=== PATIENT | male | born 1955 ===

== ENCOUNTER 2017-03-11 12:49 | Emergency (ER) | payer MEDICAID ==
[2017-03-11 12:53] VITALS: BMI 33.3
[2017-03-11 14:19] LABS: ADD MANUAL DIFF? NO
[2017-03-11 14:21] LABS: BASO # 0.01 K/mm3 (0.0-2.0); BASO % 0.2 % (0.0-3.0); EOS # 0.1 (0.0-0.7); EOS % 0.9 % (1.5-5.0); GRAN # 4.23 (1.4-6.5); GRAN % 71.9 % (50.0-68.0); HEMATOCRIT 43.6 % (42.0-52.0); LYMPH % 16.9 % (22.0-35.0); MEAN CELL VOLUME 87.2 fL (80.0-105.0); MEAN CORPUSCULAR HEMOGLOBIN 29.8 pg (25.0-35.0); MEAN CORPUSCULAR HGB CONC 34.2 g/dl (31.0-37.0); MEAN PLATELET VOLUME 9.9 fl (7.0-11.0); MONO # 0.6 (0.1-0.6); MONO % 10.1 % (1.0-6.0); PLATELET COUNT 222 10^3/uL (120.0-450.0); RED CELL DISTRIBUTION WIDTH 14.4 % (11.5-14.5); WHITE BLOOD COUNT 5.9 10^3/ul (4.5-11.0)
--- NOTE | 2017-03-11 14:24 | ED PDOC ---
Arrival/HPI - General Chief Complaint: Weakness/Neurological Deficit Time Seen by Provider: 03/11/17 13:00 Historian: Patient - History of Present Illness Narrative History of Present Illness (Text): 03/11/17 13:45 A 61 year old male, whose PMHx includes hyperlipidemia, hypertension, and atrial fibrillation, who presents to the emergency department complaining of left facial numbness and drooling from that side of face that started yesterday at 9 am. Patient states his nose felt numb as well. So he decided to come to the emergency department for evaluation. Patient denies any neurological issue below the neck, headache, dizziness, fever, nausea, vomiting, diarrhea, or any other complaints at this time. PMD: Dr. Mcgovern 03/11/17 16:57 Time/Duration: 24 hours Symptom Onset: Sudden Symptom Course: Worsening Quality: Other Activities at Onset: Rest Context: Home Past Medical History - Provider Review Nursing Documentation Reviewed: Yes - Past History Past History: No Previous - Infectious Disease Hx of Infectious Diseases: None - Tetanus Immunization Tetanus Immunization: Unknown - Cardiac Hx Cardiac Disorders: Yes Hx Cardiac Arrhythmia: Yes Hx Hypertension: Yes Hx Pacemaker: No - Pulmonary Hx Respiratory Disorders: No - Neurological Hx Neurological Disorder: No Hx Paralysis: No - HEENT Hx HEENT Disorder: No - Renal Hx Renal Disorder: Yes Hx Kidney Stones: Yes - Endocrine/Metabolic Hx Endocrine Disorders: No - Hematological/Oncological Hx Blood Transfusions: No - Integumentary Hx Dermatological Disorder: No - Musculoskeletal/Rheumatological Hx Musculoskeletal Disorders: Yes - Gastrointestinal Hx Gastrointestinal Disorders: Yes (APPENDECTOMY ,TONSILLECTOMY) Hx Gastroesophageal Reflux: Yes - Genitourinary/Gynecological Hx Genitourinary Disorders: Yes Hx Hematuria: Yes Hx Prostate Problems: No (pt denies) - Psychiatric Hx Psychophysiologic Disorder: No Hx Emotional Abuse: No Hx Physical Abuse: No Hx Substance Use: No (quit 1997 percy, pot) - Past Surgical History Past Surgical History: No Previous - Surgical History Hx Appendectomy: Yes Hx Tonsillectomy: Yes - Anesthesia Hx Anesthesia Reactions: No Hx Malignant Hyperthermia: No - Suicidal Assessment Feels Threatened In Home Enviroment: No Family/Social History - Physician Review Nursing Documentation Reviewed: Yes Family/Social History: Unknown Family HX Smoking Status: Light Smoker < 10 Cigarettes Daily Hx Alcohol Use: No (quit 1997) Hx Substance Use: No (quit 1997 coke, pot) Hx Substance Use Treatment: No Allergies/Home Meds Allergies/Adverse Reactions: Allergies No Known Allergies Allergy (Verified 03/11/17 12:58) Home Medications: Home Meds Medication Instructions Recorded Confirmed Losartan [Cozaar] 25 mg PO DAILY 12/04/12 03/11/17 hydroCHLOROthiazide [Microzide] 12.5 mg PO DAILY 09/25/13 03/11/17 Metoprolol Tartrate [Lopressor] 100 mg PO DAILY 04/23/16 03/11/17 Simvastatin [Zocor] 20 mg PO DAILY 04/23/16 03/11/17 Warfarin [Coumadin] 2.5 mg PO DAILY 04/23/16 03/11/17 Review of Systems - Review of Systems Constitutional: absent: Fevers ENT: Other (drooling from left side) Gastrointestinal: absent: Diarrhea, Nausea, Vomiting Neurological: Other (numbness to the face). absent: Headache, Dizziness, Focal Weakness Physical Exam Vital Signs Reviewed: Yes Vital Signs Temp Pulse Resp BP Pulse Ox 03/11/17 12:53 98.1 F 95 H 16 143/74 98 Temperature: Afebrile Blood Pressure: Normal Pulse: Regular Respiratory Rate: Normal Appearance: Positive for: Well-Appearing, Non-Toxic, Comfortable Pain Distress: None Mental Status: Positive for: Alert and Oriented X 3 Finger Stick Blood Glucose: 114 - Systems Exam Head: Present: Atraumatic, Normocephalic Pupils: Present: PERRL Extroacular Muscles: Present: EOMI Conjunctiva: Present: Normal Mouth: Present: Moist Mucous Membranes Neck: Present: Normal Range of Motion Respiratory/Chest: Present: Clear to Auscultation, Good Air Exchange. No: Respiratory Distress, Accessory Muscle Use Cardiovascular: Present: Regular Rate and Rhythm, Normal S1, S2. No: Murmurs Abdomen: Present: Normal Bowel Sounds. No: Tenderness, Distention, Peritoneal Signs Back: Present: Normal Inspection Upper Extremity: Present: Normal Inspection. No: Cyanosis, Edema Lower Extremity: Present: Normal Inspection. No: Edema Neurological: Present: GCS=15, Speech Normal, Motor Func Grossly Intact, Normal Cerebellar Funct, Gait Normal, Memory Normal, Other (left sided facial droop with asymmetrical eyebrows when furrowed. ). No: CN II-XII Intact Skin: Present: Warm, Dry, Normal Color. No: Rashes Psychiatric: Present: Alert, Oriented x 3, Normal Insight, Normal Concentration Medical Decision Making ED Course and Treatment: 03/11/17 13:44 Impression: A 61 year old male with left sided facial droop. Differential Diagnosis include but are not limited to: arellano's palsy Plan: -- Head CT -- Labs -- Urinalysis -- Reassess and disposition Prior Visits: Notes and results from previous visits were reviewed. The patient last presented to the emergency department on 08/21/15 for evaluation of intermittent left upper chest pain. Progress Notes: EKG: Ordered, reviewed, and independently interpreted the EKG. Rate : 91 BPM Rhythm : Atrial fibrillation Interpretation : Left axis deviation 03/11/17 15:[address]: Creator : Selena Barajas MD COMPARISON: None available. FINDINGS: HEMORRHAGE: No intracranial hemorrhage. BRAIN: There is cystic encephalomalacia in the right temporal lobe with volume loss and mild dilatation of the trigone of right lateral ventricle. There are mild chronic microangiopathic changes. There is no mass, mass effect or abnormal extra-axial fluid collection. There are coarse atherosclerotic calcifications in the cavernous carotid arteries. VENTRICLES: There is mild age-related global parenchymal volume loss and proportionate enlargement of the ventricles and cortical sulci. CALVARIUM: The skull base and calvarium are normal. PARANASAL SINUSES: Predominantly clear. MASTOID AIR CELLS: Predominantly clear. OTHER FINDINGS: None. IMPRESSION: No acute intracranial abnormality. 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 Mild chronic microangiopathic changes and age-related global parenchymal volume loss. 03/11/17 15:44 On re-evaluation, the patient is in no acute distress. I have discussed the results and plan with the patient, who expresses understanding. Patient in agreement with plan to discharged home with prescription for Artificial Tears, Valtrex and Prednisone. Patient was instructed to take a extra dose of Warfarin tonight as INR was a little low. Patient is stable for discharge. Patient was instructed to follow up with neurologist (Dr. Portillo) and PMD within 2 days or return if symptoms worsen or new concerning symptoms arise. pt referred to [facility] for follow up. 03/11/17 17:01 - Lab Interpretations Lab Results: 03/11/17 13:40 03/11/17 13:40 Lab Results 03/11/17 13:40: WBC 5.9, RBC 5.00, Hgb 14.9, Hct 43.6, MCV 87.2, MCH 29.8, MCHC 34.2, RDW 14.4, Plt Count 222, MPV 9.9, Gran % 71.9 H, Lymph % (Auto) 16.9 L, [place] % (Auto) 10.1 H, Eos % (Auto) 0.9 L, Baso % (Auto) 0.2, Gran # 4.23, Lymph # 1.0 L, [place] # 0.6, Eos # 0.1, Baso # 0.01, PT 15.9 H, INR 1.47 H, APTT 32.0 H , Sodium 139, Potassium 4.1, Chloride 101, Carbon Dioxide 26, Anion Gap 16, BUN 26 H, Creatinine 1.1, Est GFR ( Amer) > 60, Est GFR (Non-Af Amer) > 60, Random Glucose 90, Calcium 9.0, Total Bilirubin 0.6, AST 31, ALT 33, Alkaline Phosphatase 58, Total Protein 8.6 H, Albumin 4.6, Globulin 4.0, Albumin/ Globulin Ratio 1.2 I have reviewed the lab results: Yes - RAD Interpretation Radiology Orders: 03/11/17 13:53 HEAD W/O CONTRAST [CT] Stat NIHSS Scale ([place]) Time Performed: 13:45 - How Severe is the Stoke Baseline Level of Consciousness: 0=Alert LOC to Questions: 0=Both comments correct LOC to commands: 0=Obeys both correctly Best Gaze: 0=Normal Visual: 0=No visual loss Facial: 1=Minor asymmetry Motor Arm - Left: 0=No drift Motor Arm - Right: 0=No drift Motor Leg - Left: 0=No drift Motor Leg - Right: 0=No drift Limb Ataxia: 0=Absent Sensory: 0=Normal Best Language: 0=No aphasia Dysarthia: 0=Normal articulation Extinction & Inattention (Neglect): 0=Normal, no object Score: 1 Risk Level: Minor Stroke Risk rTPA Inclusion/Exclusion - Refusal of Treatment Patient Refused Treatment: No - Inclusion Criteria for Altepase Patient is 18 years or Older: Yes The Clinical Diagnosis of Ischemic Stroke That is Causing a Potentially Disabling Neurological Deficit: No Time of Onset is Well Established to be Less Than 270 Minute Before Treatment Would Begin: No Risk/Benefit Discussed With Patient/Family Member Present: No - Exclusion Criteria for Altepase Uncontrolled Hypertension at Time of Treatment (Systolic BP above 185 or Diastolic BP above 110 mmHg): No Active Internal Bleeding: No Known Bleeding Diathesis Including but Not Limited to: Platelets Below 100,000/ mm,PTT Above 40 sec After Heparin Use, Current Use of Oral Anitcoagulant With INR Greater Than 1.7 or PT Greater Than 15 secs: No Evidence of an Intracranial Hemorrhage: No Evidence of Major Acute Infarct With Signs Greater Than 1/3 MCA Territory: No Suspicion of Subarachnoid Hemorrhage on Pretreatment Evaluation Even if CT Head Negative For Hemorrhage: No - Scribe Statement The provider has reviewed the documentation as recorded by the Steveibe Marcos Stanford Provider Steveibe Attestation: All medical record entries made by the Scribe were at my direction and personally dictated by me. I have reviewed the chart and agree that the record accurately reflects my personal performance of the history, physical exam, medical decision making, and the department course for this patient. I have also personally directed, reviewed, and agree with the discharge instructions and disposition. Disposition/Present on Arrival - Present on Arrival Any Indicators Present on Arrival: No History of DVT/PE: No History of Uncontrolled Diabetes: No Urinary Catheter: No History of Decub. Ulcer: No History Surgical Site Infection Following: None - Disposition Have Diagnosis and Disposition been Completed?: Yes Diagnosis: Arellano's palsy Disposition: HOME/ ROUTINE Disposition Time: 15:00 Patient Plan: Discharge Patient Problems: Current Active Problems Problem Status Diagnosed Arellano's palsy Acute Condition: GOOD Discharge Instructions (ExitCare): Arellano Palsy (ED) Additional Instructions: follow up with your primary doctor as well as neurologist in 1-2 days. return to the ED with any worsening or concerning symptoms. Prescriptions: Polyethylene Glycol/Polyvinyl [Artificial Tears] 1 drop OS BID PRN #1 bottle PRN Reason: Dry Eyes valACYclovir [Valtrex] 1 gm PO TID #21 tab predniSONE [Prednisone] 60 mg PO DAILY #30 tab Referrals: [facility] [Outside] - Follow up with primary Jean Carlos Heath MD [Staff Provider] - Follow up with primary Amanuel Mcgovern DO [Primary Care Provider] - Follow up with primary
[2017-03-11 14:30] LABS: ALB/GLOB RATIO 1.2 (1.1-1.8); ALKALINE PHOSPHATASE 58 U/L (38-133); ALT/SGPT 33 U/L (7-56); AST/SGOT 31 U/L (15-59); BILIRUBIN,TOTAL 0.6 mg/dL (0.2-1.3); BLOOD UREA NITROGEN 26 mg/dL (7-21); CARBON DIOXIDE 26 mmol/L (21-33); CHLORIDE 101 mmol/L (98-107); GFR AFRICAN-AMERICAN > 60; GLUCOSE,RANDOM 90 mg/dL (70-110); POTASSIUM 4.1 mmol/L (3.6-5.0); SODIUM 139 mmol/L (132-148); TOTAL PROTEIN 8.6 g/dL (5.8-8.3)
[2017-03-11 14:35] LABS: INR 1.47 (0.93-1.08)
--- NOTE | 2017-03-11 14:55 | CT ---
PROCEDURE: CT HEAD WITHOUT CONTRAST. HISTORY: Arellano's palsy COMPARISON: None available. TECHNIQUE: Axial computed tomography images were obtained through the head/brain without intravenous contrast. Radiation dose: Total exam DLP = 757.28 mGy-cm. This CT exam was performed using one or more of the following dose reduction techniques: Automated exposure control, adjustment of the mA and/or kV according to patient size, and/or use of iterative reconstruction technique. FINDINGS: HEMORRHAGE: No intracranial hemorrhage. BRAIN: There is cystic encephalomalacia in the right temporal lobe with volume loss and mild dilatation of the trigone of right lateral ventricle. There are mild chronic microangiopathic changes. There is no mass, mass effect or abnormal extra-axial fluid collection. There are coarse atherosclerotic calcifications in the cavernous carotid arteries. VENTRICLES: There is mild age-related global parenchymal volume loss and proportionate enlargement of the ventricles and cortical sulci. CALVARIUM: The skull base and calvarium are normal. PARANASAL SINUSES: Predominantly clear. MASTOID AIR CELLS: Predominantly clear. OTHER FINDINGS: None. IMPRESSION: No acute intracranial abnormality. 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 Mild chronic microangiopathic changes and age-related global parenchymal volume loss.
[2017-03-11 17:09] VITALS: BP 131/85; PULSE 78; RESP 18; TEMP 98; O2SAT 97
--- NOTE | 2017-03-12 18:20 | CARD ---
APPROVED REPORT EKG Measurement Heart [id number] <Conclusion> Atrial fibrillation Left axis deviation Abnormal ECG
== END 2017-03-11 17:34 | disposition home or self-care (01) ==
LOC: ED 12:49
DX: G51.0 Bell's palsy (principal); I10 Essential (primary) hypertension; E78.5 Hyperlipidemia, unspecified; K21.9 Gastro-esophageal reflux disease without esophagitis; Z72.0 Tobacco use

== ENCOUNTER 2017-11-01 13:08 | Emergency (ER) | payer MEDICAID ==
[2017-11-01 13:30] VITALS: PULSE 96; TEMP 97.7; BMI 33.6
--- NOTE | 2017-11-01 13:35 | ED PDOC ---
Arrival/HPI - General Time Seen by Provider: 11/01/17 13:21 Historian: Patient - History of Present Illness Narrative History of Present Illness (Text): 11/01/17 13: Chris Douglas is a 62 year old male, whose past medical history includes CHF, hypertension, and afib (on Coumadin), who presents to the emergency department complaining of severe cough that has become worse since last night. Patient states he also has sputum and mild shortness of breath. No other complaints were made. PMD: Dr. Robert Paz Time/Duration: 24 hours Symptom Onset: Gradual Symptom Course: Worsening Past Medical History - Provider Review Nursing Documentation Reviewed: Yes - Past History Past History: No Previous - Infectious Disease Hx of Infectious Diseases: None - Tetanus Immunization Tetanus Immunization: Unknown - Cardiac Hx Atrial Fibrillation: Yes Hx Cardiac Arrhythmia: Yes Hx Congestive Heart Failure: Yes Hx Hypertension: Yes Hx Peripheral Edema: Yes (IN THE PAST) - Pulmonary Other/Comment: pt stated " I smoke 2 or 3 cigs a day" - Neurological Hx Neurological Disorder: No - HEENT Hx HEENT Disorder: No - Renal Hx Renal Disorder: Yes Hx Kidney Stones: Yes - Endocrine/Metabolic Hx Endocrine Disorders: No - Hematological/Oncological Hx Blood Transfusions: No - Integumentary Hx Dermatological Disorder: No - Musculoskeletal/Rheumatological Hx Arthritis: Yes (hands) - Gastrointestinal Hx Gastrointestinal Disorders: Yes Hx Gastroesophageal Reflux: Yes - Genitourinary/Gynecological Hx Genitourinary Disorders: Yes Hx Hematuria: Yes - Psychiatric Hx Anxiety: Yes Hx Substance Use: Yes (quit 1997 catie greer) - Past Surgical History Past Surgical History: No Previous - Surgical History Hx Appendectomy: Yes Hx Tonsillectomy: Yes - Anesthesia Hx Anesthesia: Yes Hx Anesthesia Reactions: No Hx Malignant Hyperthermia: No - Suicidal Assessment Feels Threatened In Home Enviroment: No Family/Social History - Physician Review Nursing Documentation Reviewed: Yes Family/Social History: Unknown Family HX Smoking Status: Light Smoker < 10 Cigarettes Daily Hx Alcohol Use: Yes (quit 1997) Hx Substance Use: Yes (quit 1997 catie greer) Hx Substance Use Treatment: No Allergies/Home Meds Allergies/Adverse Reactions: Allergies No Known Allergies Allergy (Verified 10/27/17 16:34) Home Medications: Home Meds Medication Instructions Recorded Confirmed Losartan [Cozaar] 25 mg PO DAILY 12/04/12 11/01/17 Metoprolol Tartrate [Lopressor] 100 mg PO DAILY 04/23/16 11/01/17 Simvastatin [Zocor] 40 mg PO DAILY 04/23/16 11/01/17 Warfarin [Coumadin] 2.5 mg PO DAILY 09/06/17 11/01/17 Hydrochlorothiazide [Microzide] 12.5 mg PO DAILY 10/27/17 11/01/17 Review of Systems - Review of Systems Constitutional: absent: Fevers Eyes: absent: Vision Changes Respiratory: SOB, Cough, Sputum Cardiovascular: absent: Chest Pain Gastrointestinal: absent: Abdominal Pain Genitourinary Male: absent: Dysuria Musculoskeletal: absent: Back Pain Neurological: absent: Headache Endocrine: absent: Diaphoresis Hemo/Lymphatic: absent: Easy Bleeding Physical Exam Vital Signs Reviewed: Yes Vital Signs Temp Pulse Resp BP Pulse Ox 11/01/17 15:14 16 139/90 98 11/01/17 13:29 97.7 F 96 H 18 130/94 H 97 Temperature: Afebrile Blood Pressure: Hypertensive Pulse: Tachycardic Respiratory Rate: Normal Appearance: Positive for: Well-Appearing, Non-Toxic, Comfortable Pain Distress: None Mental Status: Positive for: Alert and Oriented X 3 - Systems Exam Head: Present: Atraumatic, Normocephalic Pupils: Present: PERRL Extroacular Muscles: Present: EOMI Conjunctiva: Present: Normal Respiratory/Chest: Present: Other (mild crackles at the bases). No: Clear to Auscultation, Good Air Exchange, Respiratory Distress, Accessory Muscle Use Cardiovascular: Present: Regular Rate and Rhythm, Normal S1, S2. No: Murmurs Abdomen: Present: Normal Bowel Sounds. No: Tenderness, Distention, Peritoneal Signs, Rebound, Guarding Lower Extremity: Present: Normal Inspection, NORMAL PULSES, Normal ROM, Neurovascularly Intact, Capillary Refill < 2 s. No: Edema, Cyanosis, Tenderness , Swelling, Erythema, Deformity Neurological: Present: GCS=15, CN II-XII Intact, Speech Normal Skin: Present: Warm, Dry, Normal Color. No: Rashes Psychiatric: Present: Alert, Oriented x 3, Normal Insight, Normal Concentration Medical Decision Making ED Course and Treatment: 11/01/17 EKG: Ordered, reviewed, and independently interpreted the EKG. Rate : 94 BPM Rhythm : afib Interpretation : No ST-segment elevations or depressions, no T-wave inversions, normal intervals. 11/01/17 14:00 Chest X-ray: Creator : Robert Rick MD COMPARISON: 08/21/2015 FINDINGS: LUNGS: No active pulmonary disease. PLEURA: No significant pleural effusion identified, no pneumothorax apparent. CARDIOVASCULAR: Normal. OSSEOUS STRUCTURES: No significant abnormalities. VISUALIZED UPPER ABDOMEN: Normal. OTHER FINDINGS: None. IMPRESSION: No active disease. 11/01/17 18:03 bnp better than baseline, xr neg. trop neg. pt offered admission. declines, prefers to go home outpt managment. - Lab Interpretations Lab Results: 11/01/17 14:09 11/01/17 14:09 Lab Results 11/01/17 15:23: Urine Color Yellow, Urine Appearance Clear, Urine pH 6.0, Ur Specific [place] 1.020, Urine Protein Negative, Urine Glucose (UA) Negative, Urine Ketones Negative, Urine Blood Moderate H, Urine Nitrate Negative, Urine Bilirubin Negative, Urine Urobilinogen 0.2, Ur Leukocyte Esterase Negative, Urine RBC 15 - 20, Urine WBC 2 - 5, Ur Epithelial Cells 6 - 8 11/01/17 14:09: Influenza Typ A,B (EIA) Negative for flu a/b 11/01/17 14:09: Sodium 140, Potassium 4.3, Chloride 105, Carbon Dioxide 24, Anion Gap 15, BUN 18, Creatinine 1.0, Est GFR ( Amer) > 60, Est GFR (Non- Af Amer) > 60, Random Glucose 99, Calcium 9.1, Magnesium 1.7, Total Bilirubin 0.4, AST 31, ALT 37, Alkaline Phosphatase 68, Lactate Dehydrogenase 518, Total Creatine Kinase 208, Troponin I < 0.01 D, NT-Pro-B Natriuret Pep 676 H, Total Protein 7.8, Albumin 4.5, Globulin 3.3, Albumin/Globulin Ratio 1.4 11/01/17 14:09: PT 17.0 H, INR 1.55 H, APTT 33.1 11/01/17 14:09: WBC 5.4, RBC 4.59, Hgb 13.6 L, Hct 41.1 L, MCV 89.5, MCH 29.6, MCHC 33.1, RDW 14.0, Plt Count 190, MPV 10.2, Gran % 59.8, Lymph % (Auto) 27.3, [place] % (Auto) 9.5 H, Eos % (Auto) 3.0, Baso % (Auto) 0.4, Gran # 3.20, Lymph # 1.5, [place] # 0.5, Eos # 0.2, Baso # 0.02 I have reviewed the lab results: Yes - RAD Interpretation Radiology Orders: 11/01/17 13:32 CHEST PORTABLE [RAD] Stat Active Directory Engineer: Radiologist - EKG Interpretation Interpreted by ED Physician: Yes Type: 12 lead EKG - Scribe Statement The provider has reviewed the documentation as recorded by the Scribe Christin Heath Provider Scribe Attestation: All medical record entries made by the Scribe were at my direction and personally dictated by me. I have reviewed the chart and agree that the record accurately reflects my personal performance of the history, physical exam, medical decision making, and the department course for this patient. I have also personally directed, reviewed, and agree with the discharge instructions and disposition. Disposition/Present on Arrival - Present on Arrival Any Indicators Present on Arrival: No History of DVT/PE: No History of Uncontrolled Diabetes: No Urinary Catheter: No History Surgical Site Infection Following: None - Disposition Have Diagnosis and Disposition been Completed?: Yes Diagnosis: Cough, Congestive heart failure Disposition: HOME/ ROUTINE Disposition Time: 04:00 Condition: STABLE Discharge Instructions (ExitCare): Heart Failure (ED) Additional Instructions: follow up with your doctor. you are declining observation in the hospital but you are able to return to emergency room with worsen ing symtoms or concerns. Prescriptions: Benzonatate [Tessalon Perle] 100 mg PO TID PRN #20 capsule PRN Reason: Cough Referrals: Robert Paz [Primary Care Provider] - Follow up with primary Felix Rojas MD [Staff Provider] - Follow up with primary Forms: itravel ([place])
--- NOTE | 2017-11-01 13:50 | RAD ---
HISTORY: cough COMPARISON: 08/21/2015 FINDINGS: LUNGS: No active pulmonary disease. PLEURA: No significant pleural effusion identified, no pneumothorax apparent. CARDIOVASCULAR: Normal. OSSEOUS STRUCTURES: No significant abnormalities. VISUALIZED UPPER ABDOMEN: Normal. OTHER FINDINGS: None. IMPRESSION: No active disease.
[2017-11-01 14:21] LABS: BASO # 0.02 K/mm3 (0.0-2.0); BASO % 0.4 % (0.0-3.0); EOS # 0.2 (0.0-0.7); GRAN # 3.2 (1.4-6.5); GRAN % 59.8 % (50.0-68.0); HEMATOCRIT 41.1 % (42.0-52.0); LYMPH # 1.5 (1.2-3.4); LYMPH % 27.3 % (22.0-35.0); MEAN CELL VOLUME 89.5 fl (80.0-105.0); MEAN CORPUSCULAR HEMOGLOBIN 29.6 pg (25.0-35.0); MEAN CORPUSCULAR HGB CONC 33.1 g/dl (31.0-37.0); MEAN PLATELET VOLUME 10.2 fl (7.0-11.0); MONO # 0.5 (0.1-0.6); MONO % 9.5 % (1.0-6.0); WHITE BLOOD COUNT 5.4 10^3/ul (4.5-11.0)
[2017-11-01 14:34] LABS: ALB/GLOB RATIO 1.4 (1.1-1.8); ALKALINE PHOSPHATASE 68 U/L (38-126); ALT/SGPT 37 U/L (7-56); AST/SGOT 31 U/L (17-59); BILIRUBIN,TOTAL 0.4 mg/dL (0.2-1.3); BLOOD UREA NITROGEN 18 mg/dL (7-21); CALCIUM 9.1 mg/dL (8.4-10.5); CARBON DIOXIDE 24 mmol/L (21-33); CHLORIDE 105 mmol/L (98-107); GFR AFRICAN-AMERICAN > 60; GLUCOSE,RANDOM 99 mg/dL (70-110); MAGNESIUM 1.7 mg/dL (1.7-2.2); POTASSIUM 4.3 mmol/L (3.6-5.0); SODIUM 140 mmol/L (132-148); TOTAL PROTEIN 7.8 g/dL (5.8-8.3)
[2017-11-01 14:46] LABS: TROPONIN I < 0.01 ng/mL
[2017-11-01 14:50] LABS: INR 1.55 (0.93-1.08); PARTIAL THROMBOPLASTIN TIME 33.1 Seconds (25.1-36.5)
[2017-11-01 15:15] VITALS: BP 139/90; RESP 16; O2SAT 98
[2017-11-01 16:06] LABS: URINE BILIRUBIN NEGATIVE (NEGATIVE); URINE BLOOD MODERATE (NEGATIVE); URINE GLUCOSE (UA) NEGATIVE (NEGATIVE); URINE KETONE NEGATIVE (NEGATIVE); URINE LEUKOCYTE ESTERASE NEGATIVE Leu/uL (NEGATIVE); URINE PROTEIN NEGATIVE mg/dL (<30 mg/dL); URINE UROBILINOGEN 0.2 E.U./dL (<1 E.U./dL)
[2017-11-01 16:08] LABS: URINE APPEARANCE CLEAR (CLEAR); URINE COLOR YELLOW (YELLOW)
[2017-11-01 16:16] LABS: URINE RBC 15 - 20 /hpf (0-2)
--- NOTE | 2017-11-01 23:55 | CARD ---
APPROVED REPORT EKG Measurement Heart [id number] <Conclusion> Atrial fibrillation with premature ventricular or aberrantly conducted complexes Possible Anteroseptal infarct, age undetermined Abnormal ECG
== END 2017-11-01 15:37 | disposition home or self-care (01) ==
LOC: ED 13:08
DX: I50.9 Heart failure, unspecified (principal); R05 Cough; I10 Essential (primary) hypertension; I48.91 Unspecified atrial fibrillation; Z79.01 Long term (current) use of anticoagulants; F17.210 Nicotine dependence, cigarettes, uncomplicated

== ENCOUNTER 2018-07-13 12:46 | Emergency (ER) | payer MEDICAID, OTHER ==
[2018-07-13 12:46] VITALS: BMI 32.6
[2018-07-13 13:35] VITALS: RESP 18; TEMP 98.4; O2SAT 99
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
--- NOTE | 2018-07-13 15:41 | RAD ---
Date of service: 07/13/2018 PROCEDURE: Right Knee Radiographs. HISTORY: pain r/o fx COMPARISON: None. FINDINGS: BONES: Normal. No fracture. JOINTS: Mild joint space narrowing in the medial compartment JOINT EFFUSION: None. OTHER FINDINGS: None. IMPRESSION: No acute findings
--- NOTE | 2018-07-13 15:43 | RAD ---
PROCEDURE: Right Hip and pelvis Radiographs. HISTORY: pain r/o fx COMPARISON: None. FINDINGS: BONES: Normal. No fracture. JOINTS: Normal. SOFT TISSUES: Normal. OTHER FINDINGS: None. IMPRESSION: Negative study
--- NOTE | 2018-07-13 15:46 | RAD ---
Date of service: 07/13/2018 PROCEDURE: Radiographs of the Lumbar Spine. HISTORY: pain r/o fx COMPARISON: No prior. FINDINGS: BONES: Normal alignment. No listhesis. No fracture. DISC SPACES: Unremarkable. OTHER FINDINGS: None. IMPRESSION: Unremarkable radiographs of the lumbar spine.
[2018-07-13 16:01] VITALS: BP 109/74; PULSE 68
== END 2018-07-13 16:05 | disposition home or self-care (01) ==
LOC: ED 12:46
DX: M25.561 Pain in right knee (principal); M25.551 Pain in right hip; M54.5 Low back pain; E78.5 Hyperlipidemia, unspecified; I48.91 Unspecified atrial fibrillation; Z79.01 Long term (current) use of anticoagulants; I50.9 Heart failure, unspecified; I10 Essential (primary) hypertension; F17.210 Nicotine dependence, cigarettes, uncomplicated

== ENCOUNTER 2019-01-16 11:14 | Observation (INO) | payer OTHER ==
[2019-01-16 11:25] VITALS: BMI 41.7
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
--- NOTE | 2019-01-16 12:24 | CT ---
Date of service: 01/16/2019 PROCEDURE: CT HEAD WITHOUT CONTRAST. HISTORY: Left-sided tricep numbness .. COMPARISON: Comparison made with CT scan brain 03/11/2017 TECHNIQUE: Axial computed tomography images were obtained through the head/brain without intravenous contrast. Radiation dose: Total exam DLP = 1024.32 mGy-cm. This CT exam was performed using one or more of the following dose reduction techniques: Automated exposure control, adjustment of the mA and/or kV according to patient size, and/or use of iterative reconstruction technique. FINDINGS: HEMORRHAGE: No acute parenchymal, subarachnoid or extra-axial hemorrhage. 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 In addition, there are mild chronic periventricular white matter ischemic changes seen extending peripherally into the deep subcortical regions of both cerebral hemispheres.. Changes appear most pronounced in the right andrés- frontal horn region. There is slight ex vacuo dilatation of right frontal horn and anterior body of the right lateral ventricle Moderate generalized volume loss VENTRICLES: No obstructive hydrocephalus. CALVARIUM: Unremarkable. PARANASAL SINUSES: Unremarkable as visualized. No significant inflammatory changes. MASTOID AIR CELLS: Unremarkable as visualized. No inflammatory changes. OTHER FINDINGS: None. 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 In addition, there are mild chronic periventricular white matter ischemic changes seen extending peripherally into the deep subcortical regions of both cerebral hemispheres.. Changes appear most pronounced in the right andrés- frontal horn region. There is slight ex vacuo dilatation of right frontal horn and anterior body of the right lateral ventricle Moderate generalized volume loss
[2019-01-16 12:36] LABS: BASO # 0.01 K/mm3 (0.0-2.0); BASO % 0.2 % (0.0-3.0); EOS # 0.2 (0.0-0.7); EOS % 2.6 % (1.5-5.0); HEMOGLOBIN 12.8 g/dL (14.0-18.0); LYMPH # 1.2 (1.2-3.4); LYMPH % 20.4 % (22.0-35.0); MEAN CELL VOLUME 87.5 fl (80.0-105.0); MEAN CORPUSCULAR HEMOGLOBIN 27.2 pg (25.0-35.0); MEAN CORPUSCULAR HGB CONC 31.1 g/dl (31.0-37.0); MEAN PLATELET VOLUME 10.5 fl (7.0-11.0); MONO # 0.4 (0.1-0.6); MONO % 6.8 % (1.0-6.0); RBC 4.71 10^6/uL (3.5-6.1); RED CELL DISTRIBUTION WIDTH 14.6 % (11.5-14.5); WHITE BLOOD COUNT 5.9 10^3/uL (4.5-11.0)
[2019-01-16 12:43] LABS: INR 1.18; PARTIAL THROMBOPLASTIN TIME 34.8 Seconds (26.9-38.3); PROTHROMBIN TIME 13.3 SECONDS (9.4-12.5)
--- NOTE | 2019-01-16 12:46 | CT ---
Date of service: 01/16/2019 PROCEDURE: CT Cervical Spine without contrast HISTORY: Left-sided tricep numbness. COMPARISON: No prior study available comparison. TECHNIQUE: Axial computed tomography images were obtained of the cervical spine without the use of intravenous contrast. Coronal and sagittal reformatted images were created and reviewed. Radiation dose: Total exam DLP = 667.23 mGy-cm. This CT exam was performed using one or more of the following dose reduction techniques: Automated exposure control, adjustment of the mA and/or kV according to patient size, and/or use of iterative reconstruction technique. FINDINGS: VERTEBRAE: No acute compression fractures nor retropulsed fragments. Vertebral bodies exhibit normal stature. There straightening of the normal cervical lordosis which may in part be due to patient positioning in the gantry however underlying element muscle spasm may contribute. DISCS/SPINAL CANAL/NEURAL FORAMINA: Mild multilevel degenerative spondylosis. Changes include varying degrees of disc space narrowing, the small posterior osteophytic ridge disc bulge complexes and hypertrophic uncovertebral as well as facet joints. The overall central bony canal does appear adequate throughout despite these changes. Exit foramina are narrowed bilaterally at the C5-C6 and on the right side at the C4-C5 and C3-C4 levels. PARASPINAL SOFT TISSUES: Unremarkable. OTHER FINDINGS: None. IMPRESSION: No acute fractures. Straightening of the normal cervical lordosis which may in part be due to patient positioning gantry however underlying element of muscle spasm may contribute. Mild multilevel degenerative spondylosis most which most notably results in bilateral foraminal stenosis at C5-C6, on the right side of the C4-C5 and C3-C4 levels...
[2019-01-16 12:49] LABS: ALB/GLOB RATIO 1.3 (1.1-1.8); ALBUMIN 4.7 g/dL (3.0-4.8); ALT/SGPT 21 U/L (7-56); AST/SGOT 33 U/L (17-59); BLOOD UREA NITROGEN 19 mg/dL (7-21); CALCIUM 9.4 mg/dL (8.4-10.5); GFR NON-AFRICAN AMERICAN > 60
--- NOTE | 2019-01-16 12:52 | RAD ---
Date of service: 01/16/2019 HISTORY: L tricep numb COMPARISON: Comparison chest dated 11/01/2017. TECHNIQUE: Chest PA and lateral FINDINGS: Note that the examination is somewhat limited by motion artifact LUNGS: Minimal bibasilar atelectasis PLEURA: No significant pleural effusion identified. No pneumothorax apparent. CARDIOVASCULAR: Mild aortic atherosclerotic calcification present. Normal cardiac size. No pulmonary vascular congestion. OSSEOUS STRUCTURES: No significant abnormalities. VISUALIZED UPPER ABDOMEN: Normal. OTHER FINDINGS: None. IMPRESSION: Slightly limited motion degraded study. Minimal bibasilar atelectasis.
[2019-01-16 13:00] LABS: B-TYPE NATRIURETIC PEPTIDE 945 pg/mL (0-450); TROPONIN I < 0.01 ng/mL
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
--- NOTE | 2019-01-16 17:19 | CARD ---
APPROVED REPORT Date of service: 01/16/2019 EKG Measurement Heart [id number] <Conclusion> Atrial fibrillation with rapid ventricular response Abnormal ECG
[2019-01-16] MEDS ORDERED: Influenza Vaccine 60 mcg/0.5 mL SYR (4YR UP) IM ONE (22:41)
[2019-01-16] MEDS ORDERED: Pneumococcal 23-Valent Vaccine IM ONE (22:41)
[2019-01-17 01:51] LABS: BARBITURATES, UR NEGATIVE (NEGATIVE); BENZODIAZEPINES, UR NEGATIVE (NEGATIVE); OPIATES, UR NEGATIVE (NEGATIVE); PHENCYCLIDINE, UR NEGATIVE (NEGATIVE)
--- NOTE | 2019-01-17 01:53 | CON ---
DATE: 01/16/2019 REASON FOR CONSULTATION: Atypical chest pain. The patient is a 63-year-old male who has a history of chronic atrial fibrillation, history of coronary artery disease, underwent stenting at [facility] on 01/02/2019 with drug-eluting stent, did not show the location of the stent. The patient apparently was discharged on Plavix and Eliquis. He presented because of left arm pain and was concerned and decided to come to the emergency room. The patient at the time of my evaluation denies any retrosternal chest pain. SOCIAL HISTORY: This patient is a smoker. He is an occasional drinker. MEDICATIONS: Aspirin 81 mg once a day, Eliquis 2.5 mg twice a day, Lipitor 80 mg once a day, Lopressor 50 mg twice a day, Nicoderm patch, Plavix 75 mg once a day, Zestril 10 mg once a day. REVIEW OF SYSTEMS: No nausea or vomiting. No fever or chills. PHYSICAL EXAMINATION: GENERAL: The patient is a middle-aged male who does not appear to be in acute distress. VITAL SIGNS: Blood pressure 144/85, heart rate 98, temperature 98.5, respiration 18. HEENT: Normocephalic. CHEST: Clear. HEART: S1, S2, irregular. ABDOMEN: Soft. EXTREMITIES: Trace leg edema. LABORATORY DATA: SMA-7 is within normal limits except for glucose 111. ProBNP is 945. The first troponin is negative. INR and PTT are within normal limits. Hemoglobin and hematocrit of 12.8 and 41.2, white count and platelet count are within normal limits. EKG revealed atrial fibrillation at the rate of 106, no ischemic ST- or T-wave changes. Head CT scan without contrast, localized area of encephalomalacia right superior and mid temporal region, most likely representing old infarct, mild chronic periventricular white matter ischemic changes. ASSESSMENT: 1. Atypical chest pain, rule out myocardial infarction. 2. History of coronary stenting with drug-eluting stent on 01/02/2019 at [facility]. 3. History of old cerebrovascular accident with evidence of encephalomalacia of the right superior and mid temporal region. 4. Chronic atrial fibrillation. RECOMMENDATIONS: Continue current aspirin, Eliquis, Lipitor, Lopressor, and Zestril. Follow serial EKGs and cardiac enzymes. Obtain a serum D-dimer as well as urine for drug screen. Obtain an echocardiograph study. Alvin Wiley MD
[2019-01-17] MEDS: Pantoprazole 40 mg EC Tab PO SCH (06:06)
[2019-01-17 06:33] LABS: BASO # 0.02 K/mm3 (0.0-2.0); BASO % 0.3 % (0.0-3.0); EOS # 0.1 (0.0-0.7); HEMOGLOBIN 13.5 g/dL (14.0-18.0); LYMPH # 1.2 (1.2-3.4); MEAN CELL VOLUME 86.1 fl (80.0-105.0); MEAN CORPUSCULAR HEMOGLOBIN 28.4 pg (25.0-35.0); MEAN CORPUSCULAR HGB CONC 32.9 g/dl (31.0-37.0); MEAN PLATELET VOLUME 10.1 fl (7.0-11.0); MONO # 0.6 (0.1-0.6); MONO % 8.5 % (1.0-6.0); RBC 4.76 10^6/uL (3.5-6.1); RED CELL DISTRIBUTION WIDTH 14.4 % (11.5-14.5); WHITE BLOOD COUNT 6.9 10^3/uL (4.5-11.0)
[2019-01-17 06:54] LABS: ALB/GLOB RATIO 1.2 (1.1-1.8); ALBUMIN 4.5 g/dL (3.0-4.8); ALT/SGPT 17 U/L (7-56); AST/SGOT 27 U/L (17-59); BLOOD UREA NITROGEN 17 mg/dL (7-21); CALCIUM 9.5 mg/dL (8.4-10.5); GFR NON-AFRICAN AMERICAN > 60; HDL CHOLESTEROL 37 mg/dL (29-60)
[2019-01-17 07:04] LABS: LDL CHOLESTEROL 84 mg/dL (0-129)
--- NOTE | 2019-01-17 10:16 | CP.PCM.CON ---
History of Present Illness - History of Present Illness History of Present Illness: Neurology Consultation Note: Consult requested by Dr. Palomares Mr. Douglas is a 63-year-old man with a past medical history of HTN, HLD, systold CHF with EF of 35%, CAD s/p stent, atrial fibrillation (on Eliquis), who presented with resolving left arm weakness/numbness. MRI of the brain was done and did not show any acute infarct, but did show a chronic right temporal lobe stroke with encephalomalacia. The patient also complains of intermittent left sided chest pain, sometimes with exertion. Neurology was consulted for TIA. Review of Systems - Constitutional Constitutional: As Per HPI - EENT Eyes: absent: As Per HPI, Blind Spots, Blurred Vision, Change in Vision, Decreased Night Vision, Diplopia, Discharge, Dry Eye, Exophthalmos, Floaters, Irritation, Itchy Eyes, Loss of Peripheral Vision, Pain, Photophobia, Requires Corrective Lenses, Sees Flashes, Spots in Vision, Tunnel Vision, Other Visual Disturbances, Loss of Vision, Other Ears: absent: As Per HPI, Decreased Hearing, Ear Discharge, Ear Pain, Tinnitus, Abnormal Hearing, Disequilibrium, Dizziness, Other Nose/Mouth/Throat: absent: As Per HPI, Epistaxis, Nasal Congestion, Nasal Discharge, Nasal Obstruction, Nasal Trauma, Nose Pain, Post Nasal Drip, Sinus Pain, Sinus Pressure, Bleeding Gums, Change in Voice, Dental Pain, Dry Mouth, Dysphagia, Halitosis, Hoarsness, Lip Swelling, Mouth Lesions, Mouth Pain, Odynophagia, Sore Throat, Throat Swelling, Tongue Swelling, Facial Pain, Neck Pain, Neck Mass, Other - Cardiovascular Cardiovascular: As Per HPI - Respiratory Respiratory: absent: As Per HPI, Cough, Dyspnea, Hemoptysis, Dyspnea on Exertion, Wheezing, Snoring, Stridor, Pain on Inspiration, Chest Congestion, Excessive Mucous Production, Change in Mucous Color, Pain with Coughing, Other - Gastrointestinal Gastrointestinal: absent: As Per HPI, Abdominal Pain, Belching, Bloating, Change in Bowel Habits, Change in Stool Character, Coffee Ground Emesis, Constipation, Cramping, Diarrhea, Dyspepsia, Dysphagia, Early Satiety, Excessive Flatus, Fecal Incontinence, Heartburn, Hematemesis, Hematochezia, Loose Stools, Melena, Nausea, Odynophagia, Temesmus, Vomiting, Other - Musculoskeletal Musculoskeletal: As Per HPI - Integumentary Integumentary: absent: As Per HPI, Acne, Alopecia, Bleeding Lesions, Change in Hair, Change in Nails, Change in Pigmentation, Changing Lesions, Dry Skin, Erythema, Furuncle, Hirsutism, Lesions, New Lesions, Non-Healing Lesions, Photosensitivity, Pruritus, Rash, Skin Pain, Skin Ulcer, Sores, Striae, Swelling, Unusual Bruising, Wounds, Jaundice, Other - Neurological Neurological: As Per HPI - Psychiatric Psychiatric: absent: As Per HPI, Abnormal Sleep Pattern, Anhedonia, Anxiety, Auditory Hallucinations, Behavioral Changes, Change in Appetite, Change in Libido, Confusion, Depression, Difficulty Concentrating, Hallucinations, Homicidal Ideation, Hopelessness, Irritability, Memory Loss, Mood Swings, Panic Attacks, Paranoia, Suicidal Ideation, Visual Hallucinations, Tactile Hallucinations, Other - Endocrine Endocrine: absent: As Per HPI, Change in Body Appearance, Change in Libido, Cold Intolorance, Deepening of Voice, Excessive Sweating, Fatigue, Flushing, Heat Intolorance, Increase in Ring/Shoe/Hat Size, Palpitations, Polydipsia, Polyphagia, Polyuria, Other - Hematologic/Lymphatic Hematologic: absent: As Per HPI, Easy Bleeding, Easy Bruising, Lymphadenopathy, Other Past Patient History - Infectious Disease Hx of Infectious Diseases: None - Tetanus Immunizations Tetanus Immunization: Unknown - Past Medical History & Family History Past Medical History?: Yes - Past Social History Smoking Status: Light Smoker < 10 Cigarettes Daily - CARDIAC Hx Cardiac Disorders: Yes (afib) Hx Cardia Arrhythmia: Yes Hx Congestive Heart Failure: Yes Hx Hypercholesterolemia: Yes Hx Hypertension: Yes Hx Peripheral Edema: (none at present time) - PULMONARY Hx Respiratory Disorders: No - NEUROLOGICAL Hx Neurological Disorder: No - HEENT Hx HEENT Problems: Yes (eyeglasses) - RENAL Hx Chronic Kidney Disease: Yes Hx Kidney Stones: Yes (2 yrs ago) - ENDOCRINE/METABOLIC Hx Endocrine Disorders: No - HEMATOLOGICAL/ONCOLOGICAL Hx Blood Disorders: No - INTEGUMENTARY Hx Dermatological Problems: No - MUSCULOSKELETAL/RHEUMATOLOGICAL Hx Falls: No - GASTROINTESTINAL Hx Gastrointestinal Disorders: Yes (obese) Hx Gastroesophageal Reflux: Yes Other/Comment: ESOPHAGITIS BARRETTS ESOPHAGUS, colon polyps - GENITOURINARY/GYNECOLOGICAL Hx Genitourinary Disorders: Yes Hx Hematuria: Yes Hx Prostate Problems: (pt denies) - PSYCHIATRIC Hx Substance Use: Yes (quit cocaine and marijuana 1997) - SURGICAL HISTORY Hx Surgeries: Yes Hx Appendectomy: Yes Hx Coronary Stent: Yes (11/2018) Other/Comment: colon polyps, tonsilledtomy - ANESTHESIA Hx Anesthesia: Yes Hx Anesthesia Reactions: No Hx Malignant Hyperthermia: No Meds Allergies/Adverse Reactions: Allergies Allergy/AdvReac Type Severity Reaction Status Date / Time No Known Allergies Allergy Verified 10/27/17 16:34 - Medications Medications: Current Medications Acetaminophen (Tylenol 325mg Tab) 650 mg PO Q6H PRN PRN Reason: Fever >100.4 F Apixaban (Eliquis) 2.5 mg PO BID [facility]; Protocol Last Admin: 01/16/19 17:56 Dose: 2.5 mg Aspirin (Ecotrin) 81 mg PO DAILY [facility] Atorvastatin Calcium (Lipitor) 80 mg PO DIN [facility] Last Admin: 01/16/19 17:27 Dose: 80 mg Clopidogrel Bisulfate (Plavix) 75 mg PO DAILY [facility] Lisinopril (Zestril) 10 mg PO DAILY [facility] Nicotine (Nicoderm Cq) 1 patch TD DAILY [facility] Last Admin: 01/16/19 15:00 Dose: 1 patch Pantoprazole Sodium (Protonix Ec Tab) 40 mg PO 0600 [facility] Last Admin: 01/17/19 06:06 Dose: 40 mg Physical Exam - Constitutional Appears: Well - Head Exam Head Exam: ATRAUMATIC, NORMAL INSPECTION, NORMOCEPHALIC - Eye Exam Eye Exam: EOMI, Normal appearance, PERRL Pupil Exam: NORMAL ACCOMODATION, PERRL - ENT Exam ENT Exam: Mucous Membranes Moist, Normal Exam - Neck Exam Neck exam: Positive for: Normal Inspection - Respiratory Exam Respiratory Exam: Clear to Auscultation Bilateral, NORMAL BREATHING PATTERN - Cardiovascular Exam Cardiovascular Exam: Irregular Rhythm, +S1, +S2 - GI/Abdominal Exam GI & Abdominal Exam: Normal Bowel Sounds, Soft. absent: Tenderness - Extremities Exam Extremities exam: Positive for: normal inspection - Back Exam Back exam: NORMAL INSPECTION - Neurological Exam Neurological exam: Alert, CN II-XII Intact, Normal Gait, Oriented x3, Reflexes Normal Additional comments: No focal deficits, NIHSS = 0 - Psychiatric Exam Psychiatric exam: Normal Affect, Normal Mood - Skin Skin Exam: Dry, Intact, Normal Color, Warm Results - Vital Signs Recent Vital Signs: Last Vital Signs Temp 97.2 F L 01/17/19 08:36 Pulse 84 01/17/19 08:36 Resp 20 01/17/19 08:36 BP 133/91 H 01/17/19 08:39 Pulse Ox 94 L 01/17/19 08:36 - Labs Result Diagrams: 01/17/19 06:00 01/17/19 06:00 Labs: Laboratory Results - last 24 hr 01/16/19 01/16/19 01/16/19 11:00 11:37 11:37 WBC 5.9 RBC 4.71 Hgb 12.8 L Hct 41.2 L MCV 87.5 MCH 27.2 MCHC 31.1 RDW 14.6 H Plt Count 242 MPV 10.5 Neut % (Auto) 70.0 H Lymph % (Auto) 20.4 L [place] % (Auto) 6.8 H Eos % (Auto) 2.6 Baso % (Auto) 0.2 Lymph # (Auto) 1.2 [place] # (Auto) 0.4 Eos # (Auto) 0.2 Baso # (Auto) 0.01 Absolute Neuts (auto) 4.12 PT INR APTT D-Dimer, Quantitative Sodium 141 Potassium 3.9 Chloride 103 Carbon Dioxide 28 Anion Gap 14 BUN 19 Creatinine 0.9 Est GFR ( Amer) > 60 Est GFR (Non-Af Amer) > 60 Random Glucose 111 H Calcium 9.4 Phosphorus Magnesium Total Bilirubin 0.4 AST 33 ALT 21 Alkaline Phosphatase 79 Troponin I < 0.01 NT-Pro-B Natriuret Pep 945 H Total Protein 8.3 Albumin 4.7 Globulin 3.6 Albumin/Globulin Ratio 1.3 Triglycerides Cholesterol LDL Cholesterol Direct HDL Cholesterol TSH 3rd Generation 0.90 Urine Opiates Screen Urine Methadone Screen Ur Barbiturates Screen Ur Phencyclidine Scrn Ur Amphetamines Screen U Benzodiazepines Scrn U Oth Cocaine Metabols U Cannabinoids Screen Blood Type Blood Type Confirm Antibody Screen BBK History Checked 01/16/19 01/16/19 01/16/19 11:37 11:37 13:40 WBC RBC Hgb Hct MCV MCH MCHC RDW Plt Count MPV Neut % (Auto) Lymph % (Auto) [place] % (Auto) Eos % (Auto) Baso % (Auto) Lymph # (Auto) [place] # (Auto) Eos # (Auto) Baso # (Auto) Absolute Neuts (auto) PT 13.3 H INR 1.18 APTT 34.8 D-Dimer, Quantitative Sodium Potassium Chloride Carbon Dioxide Anion Gap BUN Creatinine Est GFR ( Amer) Est GFR (Non-Af Amer) Random Glucose Calcium Phosphorus Magnesium Total Bilirubin AST ALT Alkaline Phosphatase Troponin I NT-Pro-B Natriuret Pep Total Protein Albumin Globulin Albumin/Globulin Ratio Triglycerides Cholesterol LDL Cholesterol Direct HDL Cholesterol TSH 3rd Generation Urine Opiates Screen Urine Methadone Screen Ur Barbiturates Screen Ur Phencyclidine Scrn Ur Amphetamines Screen U Benzodiazepines Scrn U Oth Cocaine Metabols U Cannabinoids Screen Blood Type A POSITIVE Blood Type Confirm A POSITIVE Antibody Screen Negative BBK History Checked No verified bt 01/16/19 01/16/19 01/17/19 17:25 17:25 00:30 WBC RBC Hgb Hct MCV MCH MCHC RDW Plt Count MPV Neut % (Auto) Lymph % (Auto) [place] % (Auto) Eos % (Auto) Baso % (Auto) Lymph # (Auto) [place] # (Auto) Eos # (Auto) Baso # (Auto) Absolute Neuts (auto) PT INR APTT D-Dimer, Quantitative 206 Sodium Potassium Chloride Carbon Dioxide Anion Gap BUN Creatinine Est GFR ( Amer) Est GFR (Non-Af Amer) Random Glucose Calcium Phosphorus Magnesium Total Bilirubin AST ALT Alkaline Phosphatase Troponin I < 0.01 < 0.01 NT-Pro-B Natriuret Pep Total Protein Albumin Globulin Albumin/Globulin Ratio Triglycerides Cholesterol LDL Cholesterol Direct HDL Cholesterol TSH 3rd Generation Urine Opiates Screen Urine Methadone Screen Ur Barbiturates Screen Ur Phencyclidine Scrn Ur Amphetamines Screen U Benzodiazepines Scrn U Oth Cocaine Metabols U Cannabinoids Screen Blood Type Blood Type Confirm Antibody Screen BBK History Checked 01/17/19 01/17/19 01/17/19 00:45 06:00 06:00 WBC 6.9 RBC 4.76 Hgb 13.5 L Hct 41.0 L MCV 86.1 MCH 28.4 MCHC 32.9 RDW 14.4 Plt Count 223 MPV 10.1 Neut % (Auto) 71.2 H Lymph % (Auto) 18.0 L [place] % (Auto) 8.5 H Eos % (Auto) 2.0 Baso % (Auto) 0.3 Lymph # (Auto) 1.2 [place] # (Auto) 0.6 Eos # (Auto) 0.1 Baso # (Auto) 0.02 Absolute Neuts (auto) 4.88 PT INR APTT D-Dimer, Quantitative Sodium 140 Potassium 4.2 Chloride 104 Carbon Dioxide 26 Anion Gap 14 BUN 17 Creatinine 0.9 Est GFR ( Amer) > 60 Est GFR (Non-Af Amer) > 60 Random Glucose 96 Calcium 9.5 Phosphorus 4.3 Magnesium 1.9 Total Bilirubin 0.6 AST 27 ALT 17 Alkaline Phosphatase 88 Troponin I NT-Pro-B Natriuret Pep Total Protein 8.2 Albumin 4.5 Globulin 3.7 Albumin/Globulin Ratio 1.2 Triglycerides 127 Cholesterol 142 LDL Cholesterol Direct 84 HDL Cholesterol 37 TSH 3rd Generation Urine Opiates Screen Negative Urine Methadone Screen Negative Ur Barbiturates Screen Negative Ur Phencyclidine Scrn Negative Ur Amphetamines Screen Negative U Benzodiazepines Scrn Negative U Oth Cocaine Metabols Negative U Cannabinoids Screen Negative Blood Type Blood Type Confirm Antibody Screen BBK History Checked Assessment & Plan (1) Transient ischemic attack Assessment and Plan: Continue Eliquis for secondary stroke prevention. Echocardiogram to rule out cardiac thrombus. PT/OT eval and treatment if needed. Management of stroke risk factors (HTN, HLD) per primary team. Status: Acute (2) Atrial fibrillation Assessment and Plan: Continue Eliquis and follow cardiology recs (appreciated). Status: Chronic (3) CHF NYHA class III (symptoms with mildly strenuous activities) Status: Chronic
--- NOTE | 2019-01-17 11:37 | CARD ---
APPROVED REPORT Date of service: 01/17/2019 EKG Measurement Heart [id number] <Conclusion> Atrial fibrillation Septal infarct, age undetermined Abnormal ECG
--- NOTE | 2019-01-17 12:08 | MRI ---
Date of service: 01/16/2019 PROCEDURE: MRI BRAIN WITHOUT CONTRAST HISTORY: r/o cva COMPARISON: CT head without contrast from 01/16/2019. TECHNIQUE: Multiplanar, multisequence MR images of the brain were obtained without intravenous contrast enhancement. FINDINGS: HEMORRHAGE: None DWI: No evidence of an acute or early subacute infarction. BRAIN PARENCHYMA: There is cystic encephalomalacia and gliosis in the right temporal lobe. There are moderate chronic microangiopathic changes. There is no mass, mass effect or abnormal extra-axial fluid collection the midline sagittal structures are normal. VENTRICLES: There is mild age-related global parenchymal volume loss and proportionate enlargement of the ventricles and cortical sulci. CRANIUM: There is normal bone marrow signal pattern. ORBITS: Grossly unremarkable. PARANASAL SINUSES/MASTOIDS: Clear VASCULAR SYSTEM: Skull base flow voids intact. OTHER FINDINGS: None. IMPRESSION: No acute intracranial abnormality. Cystic encephalomalacia and gliosis in the right temporal lobe, sequela of remote MCA territory infarction. Moderate chronic microangiopathic changes and mild age-related global parenchymal volume loss.
--- NOTE | 2019-01-17 12:43 | CP.PCM.PN ---
Objective - Vital Signs/Intake and Output Vital Signs (last 24 hours): Temp Pulse Resp BP Pulse Ox 97.2 F L 84 20 133/91 H 94 L 01/17/19 08:36 01/17/19 10:35 01/17/19 08:36 01/17/19 10:35 01/17/19 08:36 Intake and Output: 01/17/19 01/17/19 06:59 18:59 Intake Total 360 Balance 360 - Medications Medications: Current Medications Acetaminophen (Tylenol 325mg Tab) 650 mg PO Q6H PRN PRN Reason: Fever >100.4 F Apixaban (Eliquis) 2.5 mg PO BID [facility]; Protocol Last Admin: 01/16/19 17:56 Dose: 2.5 mg Aspirin (Ecotrin) 81 mg PO DAILY [facility] Last Admin: 01/17/19 10:36 Dose: 81 mg Atorvastatin Calcium (Lipitor) 80 mg PO DIN [facility] Last Admin: 01/16/19 17:27 Dose: 80 mg Clopidogrel Bisulfate (Plavix) 75 mg PO DAILY [facility] Last Admin: 01/17/19 10:36 Dose: 75 mg Lisinopril (Zestril) 10 mg PO DAILY [facility] Last Admin: 01/17/19 10:35 Dose: 10 mg Metoprolol Tartrate (Lopressor) 25 mg PO BID [facility] Nicotine (Nicoderm Cq) 1 patch TD DAILY [facility] Last Admin: 01/17/19 10:37 Dose: 1 patch Pantoprazole Sodium (Protonix Ec Tab) 40 mg PO 0600 [facility] Last Admin: 01/17/19 06:06 Dose: 40 mg - Labs Labs: 01/17/19 06:00 01/17/19 06:00 PT 13.3 SECONDS (9.4-12.5) H 01/16/19 11:37 INR 1.18 01/16/19 11:37 APTT 34.8 Seconds (26.9-38.3) 01/16/19 11:37
--- NOTE | 2019-01-17 15:14 | CARD ---
APPROVED REPORT Date of service: 01/17/2019 EXAM: Two-dimensional and M-mode echocardiogram with Doppler and color Doppler. INDICATION Chest Pain 2D DIMENSIONS Left Atrium (2D)4.5 (1.6-4.0cm)IVSd1.0 (0.7-1.1cm) LVDd5.4 (3.9-5.9cm)PWd1.2 (0.7-1.1cm) LVDs4.4 (2.5-4.0cm)FS (%) 18.7 % LVEF (%)38.2 (>50%) M-Mode DIMENSIONS Aortic Root3.50 (2.2-3.7cm)Aortic Cusp Exc.1.60 (1.5-2.0cm) Aortic Valve AoV Peak Wukevces008.0cm/Park Peak GR.12mmHgAI P 1/2 [id number] Mitral Valve E/A ratio0.0 TDI E/Lateral E'0.0E/Medial E'0.0 Pulmonary Valve PV Peak Jubtwycx17.0cm/sPV Peak Grad.2mmHg Tricuspid Valve TR Peak [id number]/sRAP [id number] Peak Gr.26mmHg [id number] LEFT VENTRICLE The left ventricle is normal size. There is normal left ventricular wall thickness. The systolic function is moderately to severely impaired. Regional wall motion abnormalities noted. No left ventricle thrombus noted on this study. RIGHT VENTRICLE The right ventricle is normal size. There is normal right ventricular wall thickness. Systolic function is mildly reduced. ATRIA The left atrium is mildly dilated. The right atrium is mildly dilated. AORTIC VALVE The aortic valve is severely thickened. There is moderate aortic regurgitation. There is no aortic valvular stenosis. MITRAL VALVE The mitral valve is mildly thickened. Mitral regurgitation is mild. There is no mitral valve stenosis. TRICUSPID VALVE There is mild tricuspid regurgitation. There is mild pulmonary hypertension. PULMONIC VALVE The pulmonary valve is normal in structure. There is no pulmonic valvular regurgitation. GREAT VESSELS The aortic root is normal in size. The IVC is normal in size and collapses >50% with inspiration. <Conclusion> There is normal left ventricular wall thickness. The systolic function is moderately to severely impaired. Regional wall motion abnormalities noted. No left ventricle thrombus noted on this study. There is moderate aortic regurgitation. Mitral regurgitation is mild. There is mild tricuspid regurgitation. There is mild pulmonary hypertension.
--- NOTE | 2019-01-17 16:08 | PN ---
DATE: 01/17/2019 SUBJECTIVE: The patient denies any chest pain. He is ambulating. PHYSICAL EXAMINATION: VITAL SIGNS: Blood pressure 132/91, heart rate 84, temperature 97.2, and respiration 20. HEENT: Normocephalic. CHEST: Clear. HEART: S1 and S2 regular. EXTREMITIES: No edema. LABORATORY DATA: His urine drug screen is negative. Today's SMA-7 is within normal limits. Three sets of troponin are negative. ASSESSMENT: 1. Chest pain. Myocardial infarction ruled out. 2. Status post recent coronary stenting with drug-eluting stent on 01/02/2019. 3. Chronic atrial fibrillation. RECOMMENDATIONS: Continue current aspirin, Eliquis, Plavix, oral Protonix, and Vistaril. Awaiting echocardiograph study to be performed today. Alvin Wiley MD
--- NOTE | 2019-01-17 16:15 | CP.PCM.DIS ---
Provider - Provider Date of Admission: 01/16/19 13:15 Attending physician: Clare Stanford DO Primary care physician: Robert Paz MD Consults: 01/16/19 14:36 Cardiology Consult Routine Comment: Consulting Provider: Alvin Wiley Consulting Physician: Alvin Wiley Reason for Consult: cp r/o acs, recent stent 01/16/19 14:37 Neurology Consult Routine Comment: Consulting Provider: Samm Newton Consulting Physician: Samm Newton Reason for Consult: Left upper amr weakness/around bicept r/o cva 01/16/19 22:23 Social Work Referral Routine Comment: d/c plan Physician Instructions: Reason For Exam: assess 01/16/19 22:41 Inpatient [employer] Core Measures Referral Routine Comment: chest pain Physician Instructions: Reason For Exam: assess Transition In Care/Readmission Reduction Routine Comment: chest pain Physician Instructions: Reason For Exam: assess Time Spent in preparation of Discharge (in minutes): 35 Diagnosis - Discharge Diagnosis (1) Coronary artery disease Status: Chronic (2) Benign hypertension Status: Chronic (3) Atrial fibrillation Status: Chronic (4) CHF NYHA class III (symptoms with mildly strenuous activities) Status: Chronic Hospital Course - Lab Results Lab Results: Most Recent Lab Values WBC 6.9 10^3/uL (4.5-11.0) 01/17/19 06:00 RBC 4.76 10^6/uL (3.5-6.1) 01/17/19 06:00 Hgb 13.5 g/dL (14.0-18.0) L 01/17/19 06:00 Hct 41.0 % (42.0-52.0) L 01/17/19 06:00 MCV 86.1 fl (80.0-105.0) 01/17/19 06:00 MCH 28.4 pg (25.0-35.0) 01/17/19 06:00 MCHC 32.9 g/dl (31.0-37.0) 01/17/19 06:00 RDW 14.4 % (11.5-14.5) 01/17/19 06:00 Plt Count 223 10^3/uL (120.0-450.0) 01/17/19 06:00 MPV 10.1 fl (7.0-11.0) 01/17/19 06:00 Neut % (Auto) 71.2 % (50.0-68.0) H 01/17/19 06:00 Lymph % (Auto) 18.0 % (22.0-35.0) L 01/17/19 06:00 [place] % (Auto) 8.5 % (1.0-6.0) H 01/17/19 06:00 Eos % (Auto) 2.0 % (1.5-5.0) 01/17/19 06:00 Baso % (Auto) 0.3 % (0.0-3.0) 01/17/19 06:00 Lymph # (Auto) 1.2 (1.2-3.4) 01/17/19 06:00 [place] # (Auto) 0.6 (0.1-0.6) 01/17/19 06:00 Eos # (Auto) 0.1 (0.0-0.7) 01/17/19 06:00 Baso # (Auto) 0.02 K/mm3 (0.0-2.0) 01/17/19 06:00 Absolute Neuts (auto) 4.88 (1.4-6.5) 01/17/19 06:00 PT 13.3 SECONDS (9.4-12.5) H 01/16/19 11:37 INR 1.18 01/16/19 11:37 APTT 34.8 Seconds (26.9-38.3) 01/16/19 11:37 D-Dimer, Quantitative 206 ng/mlDDU (0-243) 01/16/19 17:25 Sodium 140 mmol/L (132-148) 01/17/19 06:00 Potassium 4.2 mmol/L (3.6-5.0) 01/17/19 06:00 Chloride 104 mmol/L (98-107) 01/17/19 06:00 Carbon Dioxide 26 mmol/L (21-33) 01/17/19 06:00 Anion Gap 14 (10-20) 01/17/19 06:00 BUN 17 mg/dL (7-21) 01/17/19 06:00 Creatinine 0.9 mg/dl (0.8-1.5) 01/17/19 06:00 Est GFR ( Amer) > 60 01/17/19 06:00 Est GFR (Non-Af Amer) > 60 01/17/19 06:00 Random Glucose 96 mg/dL (70-110) 01/17/19 06:00 Calcium 9.5 mg/dL (8.4-10.5) 01/17/19 06:00 Phosphorus 4.3 mg/dL (2.5-4.5) 01/17/19 06:00 Magnesium 1.9 mg/dL (1.7-2.2) 01/17/19 06:00 Total Bilirubin 0.6 mg/dL (0.2-1.3) 01/17/19 06:00 AST 27 U/L (17-59) 01/17/19 06:00 ALT 17 U/L (7-56) 01/17/19 06:00 Alkaline Phosphatase 88 U/L (38-126) 01/17/19 06:00 Troponin I < 0.01 ng/mL 01/17/19 00:30 NT-Pro-B Natriuret Pep 945 pg/mL (0-450) H 01/16/19 11:37 Total Protein 8.2 g/dL (5.8-8.3) 01/17/19 06:00 Albumin 4.5 g/dL (3.0-4.8) 01/17/19 06:00 Globulin 3.7 gm/dL 01/17/19 06:00 Albumin/Globulin Ratio 1.2 (1.1-1.8) 01/17/19 06:00 Triglycerides 127 mg/dL (35-160) 01/17/19 06:00 Cholesterol 142 mg/dL (130-200) 01/17/19 06:00 LDL Cholesterol Direct 84 mg/dL (0-129) 01/17/19 06:00 HDL Cholesterol 37 mg/dL (29-60) 01/17/19 06:00 TSH 3rd Generation 0.90 mIU/mL (0.46-4.68) 01/16/19 11:00 Urine Opiates Screen Negative (NEGATIVE) 01/17/19 00:45 Urine Methadone Screen Negative (NEGATIVE) 01/17/19 00:45 Ur Barbiturates Screen Negative (NEGATIVE) 01/17/19 00:45 Ur Phencyclidine Scrn Negative (NEGATIVE) 01/17/19 00:45 Ur Amphetamines Screen Negative (NEGATIVE) 01/17/19 00:45 U Benzodiazepines Scrn Negative (NEGATIVE) 01/17/19 00:45 U Oth Cocaine Metabols Negative (NEGATIVE) 01/17/19 00:45 U Cannabinoids Screen Negative (NEGATIVE) 01/17/19 00:45 Blood Type A POSITIVE 01/16/19 11:37 Blood Type Confirm A POSITIVE 01/16/19 13:40 Antibody Screen Negative 01/16/19 11:37 BBK History Checked No verified bt 01/16/19 11:37 - Date & Time of H&P Date of H&P: 01/16/19 Time of H&P: 14:41 Discharge Exam - Additional Findings Additional findings: - Constitutional Appears: No Acute Distress - Head Exam Head Exam: ATRAUMATIC, NORMOCEPHALIC - Eye Exam Eye Exam: EOMI, Normal appearance, PERRL - ENT Exam ENT Exam: Mucous Membranes Moist - Neck Exam Neck exam: Positive for: Normal Inspection. Negative for: Lymphadenopathy - Respiratory Exam Respiratory Exam: Clear to Auscultation Bilateral, NORMAL BREATHING PATTERN. absent: Rales, Rhonchi, Wheezes, Respiratory Distress, Stridor - Cardiovascular Exam Cardiovascular Exam: Irregular Rhythm, +S1, +S2. absent: Systolic Murmur - GI/Abdominal Exam GI & Abdominal Exam: Normal Bowel Sounds, Soft. absent: Distended, Firm, Guarding, Rigid, Tenderness - Extremities Exam Extremities exam: Positive for: normal inspection. Negative for: pedal edema, tenderness - Back Exam Back exam: NORMAL INSPECTION - Neurological Exam Neurological exam: Alert, CN II-XII Intact, Oriented x3 - Psychiatric Exam Psychiatric exam: Normal Affect, Normal Mood - Skin Skin Exam: Dry, Intact, Normal Color, Warm Discharge Plan - Follow Up Plan Condition: GOOD Disposition: HOME/ ROUTINE Instructions: Atrial Fibrillation (DC), Transient Ischemic Attack (DC), Angina (DC) Additional Instructions: Please follow up with you primary medical doctor Dr. Paz within 3-5 days. 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 Please continue all of your home medications. Return to ED if symptoms return. Referrals: Robert Paz [Primary Care Provider] - Kwabena Harry MD [Medical Doctor] -
--- NOTE | 2019-01-17 16:40 | CP.PCM.PN ---
<Felice Carver L - Last Filed: 01/17/19 16:49> Subjective - Date & Time of Evaluation Date of Evaluation: 01/17/19 Time of Evaluation: 07:00 - Subjective Subjective: Resident Progress Note for Hospitalist Service Patient examined at bedside. No acute events overnight. Patient admits to intermittent chest discomfort even at rest, states that this has not changed in severity since before he was admitted. Patient's heart rate noted to be tachycardic in 160s when ambulating. Denies nausea, vomiting, palpitations, shortness of breath, abdominal pain, diarrhea, dysuria. Objective - Vital Signs/Intake and Output Vital Signs (last 24 hours): Temp Pulse Resp BP Pulse Ox 97.2 F L 160 H 20 133/91 H 94 L 01/17/19 08:36 01/17/19 13:50 01/17/19 08:36 01/17/19 10:35 01/17/19 08:36 Intake and Output: 01/17/19 01/17/19 06:59 18:59 Intake Total 360 Balance 360 - Medications Medications: Current Medications Acetaminophen (Tylenol 325mg Tab) 650 mg PO Q6H PRN PRN Reason: Fever >100.4 F Apixaban (Eliquis) 2.5 mg PO BID [facility]; Protocol Last Admin: 01/17/19 15:07 Dose: 2.5 mg Aspirin (Ecotrin) 81 mg PO DAILY [facility] Last Admin: 01/17/19 10:36 Dose: 81 mg Atorvastatin Calcium (Lipitor) 80 mg PO DIN [facility] Last Admin: 01/16/19 17:27 Dose: 80 mg Clopidogrel Bisulfate (Plavix) 75 mg PO DAILY [facility] Last Admin: 01/17/19 10:36 Dose: 75 mg Digoxin (Digoxin) 0.125 mg PO 1400 [facility] Lisinopril (Zestril) 10 mg PO DAILY [facility] Last Admin: 01/17/19 10:35 Dose: 10 mg Metoprolol Tartrate (Lopressor) 50 mg PO BID [facility] Nicotine (Nicoderm Cq) 1 patch TD DAILY [facility] Last Admin: 01/17/19 10:37 Dose: 1 patch Pantoprazole Sodium (Protonix Ec Tab) 40 mg PO 0600 [facility] Last Admin: 01/17/19 06:06 Dose: 40 mg Spironolactone (Aldactone) 25 mg PO DAILY [facility] - Labs Labs: 01/17/19 06:00 01/17/19 06:00 PT 13.3 SECONDS (9.4-12.5) H 01/16/19 11:37 INR 1.18 01/16/19 11:37 APTT 34.8 Seconds (26.9-38.3) 01/16/19 11:37 - Additional Findings Additional findings: - Constitutional Appears: No Acute Distress - Head Exam Head Exam: ATRAUMATIC, NORMOCEPHALIC - Eye Exam Eye Exam: EOMI, Normal appearance - ENT Exam ENT Exam: Mucous Membranes Moist - Neck Exam Neck exam: Positive for: Normal Inspection - Respiratory Exam Respiratory Exam: Clear to Auscultation Bilateral, NORMAL BREATHING PATTERN. absent: Rales, Rhonchi, Wheezes, Respiratory Distress - Cardiovascular Exam Cardiovascular Exam: Irregular Rhythm, +S1, +S2. absent: Systolic Murmur - GI/Abdominal Exam GI & Abdominal Exam: Normal Bowel Sounds, Soft. absent: Distended, Firm, Guarding, Rigid, Tenderness - Extremities Exam Extremities exam: Positive for: normal inspection. Negative for: pedal edema, tenderness - Back Exam Back exam: NORMAL INSPECTION - Neurological Exam Neurological exam: Alert, CN II-XII Intact, Oriented x3 - Psychiatric Exam Psychiatric exam: Normal Affect, Normal Mood - Skin Skin Exam: Dry, Intact, Normal Color, Warm Assessment and Plan - Assessment and Plan (Free Text) Assessment: Patient is a 63 year old with past medical history of hypertension, hyperlipidemia, Sanchez esophagus, systolic CHF, CAD s/p stent (12/03/18), afib on eliquis presenting with left arm weakness and chest discomfort. Plan: Chest pain - AYDEE score 3 - troponins negative x3 - lipid panel and TSH within normal limits - ECHO shows EF 38%, no left ventricle thrombus, moderate AR, mild MR/TR/pulmonary hypertension - Cardiology consulted. Recs appreciated. Left upper extremity numbness - MRI shows no acute intracranial abnormality, cystic encephalomalacia and gliosis in right temporal lobe, sequela of remote MCA infarct - Cervical spine CT shows bilateral foraminal stenosis at C5-C6, right side of C3-C5 levels - Neurology consulted. Recs appreciated Atrial fibrillation - continue eliquis 2.5 mg PO BID - continue metoprolol 50 mg PO BID Hyperlipidemia - continue Lipitor 80 mg PO daily - lipid panel within normal limits Tobacco abuse - nicotine patch daily - cessation counseling History of Sanchez esophagus - Protonix 40 mg PO daily PPX - Eliquis, Protonix Case discussed with Dr. Abdoulaye Carver PGY-1 <Guzman Castillo - Last Filed: 01/18/19 17:47> Objective - Vital Signs/Intake and Output Vital Signs (last 24 hours): Temp Pulse Resp BP Pulse Ox 97.2 F L 89 18 124/90 95 01/18/19 06:00 01/18/19 14:00 01/18/19 06:00 01/18/19 11:27 01/18/19 06:00 - Labs Labs: 01/18/19 06:00 01/18/19 06:00 PT 13.3 SECONDS (9.4-12.5) H 01/16/19 11:37 INR 1.18 01/16/19 11:37 APTT 34.8 Seconds (26.9-38.3) 01/16/19 11:37 Attending/Attestation - Attestation I have personally seen and examined this patient.: Yes I have fully participated in the care of the patient.: Yes I have reviewed all pertinent clinical information, including history, physical exam and plan: Yes Notes (Text): 01/18/19 17:39 Attending note; Patient seen and examined with resident. Patient is alert and awake. denies any chest pain, palpitation. denies any nausea, vomiting. Patient is a 63 year old with Pmhx of HTN,, HLD, Sanchez esophagus, systolic chf with LEVF of 35-40% ( 12/09), CAD s/p stent ( 12/03/18), Afib on eliquis presentin g with left arm weakness. Patient is also complaining of chest pain. 1. Arm numbness; MRI shows no acute intracranial abnormality, cystic encephalomalacia and gliosis in right temporal lobe, sequela of remote MCA infarct Cervical spine CT shows bilateral foraminal stenosis at C5-C6, right side of C3-C5 levels. Seen by neurology. 2. Chest pain; troponins negative x3. ECHO shows EF 38%, no left ventricle thrombus, moderate AR, mild MR/TR/pulmonary hypertension 3. Tachycardia; continue metoprolol. started on digoxin and aldactone. 4. AfiB; continue eliquis. Patient Is clinically stable. Patient can be discharged home. Follow-up with PMD Dr. Paz and follow-up with [employer] cash[employer] Dr. Bernard.
[2019-01-18] MEDS: Pantoprazole 40 mg EC Tab PO SCH (06:01)
[2019-01-18 06:41] LABS: BASO # 0.01 K/mm3 (0.0-2.0); BASO % 0.2 % (0.0-3.0); EOS # 0.2 (0.0-0.7); EOS % 2.7 % (1.5-5.0); HEMOGLOBIN 13.4 g/dL (14.0-18.0); LYMPH # 1.2 (1.2-3.4); LYMPH % 18.5 % (22.0-35.0); MEAN CELL VOLUME 85.3 fl (80.0-105.0); MEAN CORPUSCULAR HEMOGLOBIN 27.3 pg (25.0-35.0); MEAN CORPUSCULAR HGB CONC 32.1 g/dl (31.0-37.0); MEAN PLATELET VOLUME 10.4 fl (7.0-11.0); MONO # 0.7 (0.1-0.6); MONO % 11.3 % (1.0-6.0); RBC 4.9 10^6/uL (3.5-6.1); RED CELL DISTRIBUTION WIDTH 14.4 % (11.5-14.5); WHITE BLOOD COUNT 6.3 10^3/uL (4.5-11.0)
[2019-01-18 07:21] LABS: ALB/GLOB RATIO 1.2 (1.1-1.8); ALBUMIN 4.4 g/dL (3.0-4.8); ALT/SGPT 21 U/L (7-56); AST/SGOT 28 U/L (17-59); BLOOD UREA NITROGEN 19 mg/dL (7-21); CALCIUM 9.3 mg/dL (8.4-10.5); GFR NON-AFRICAN AMERICAN > 60
[2019-01-18 09:43] VITALS: RESP 18; TEMP 97.2; O2SAT 95
[2019-01-18 11:31] VITALS: BP 124/90
--- NOTE | 2019-01-18 13:42 | PN ---
DATE: 01/18/2019 SUBJECTIVE: The patient kept overnight because of rapid atrial fibrillation while on minimal exertion. The patient dizziness at this time. PHYSICAL EXAMINATION: VITAL SIGNS: Blood pressure 135/90, heart rate 55, temperature 97.7, respirations 18. HEENT: Normocephalic. CHEST: Clear. HEART: Sounds are regular. EXTREMITIES: Trace leg edema. LABORATORY DATA: Today's SMA-7 is within normal limits. Today's hemoglobin and hematocrit 15.4 and 41.8, white count and platelet count are within normal limits. Echocardiograph study revealed [id number] decreased ejection fraction, moderate aortic insufficiency, and mild pulmonary hypertension. ASSESSMENT: 1. Atypical chest pain, myocardial infraction rule out, status post recent coronary stenting at [facility] on 01/02/2019. 2. [id number]-[id number] decreased ejection fraction similar to the most recent echocardiograph study done at [facility]. 3. Moderate mitral insufficiency. 4. Mild pulmonary hypertension. 5. Chronic atrial fibrillation. RECOMMENDATIONS: Continue Aldactone 25 mg once a day, digoxin 0.125 mg daily, aspirin 81 once a day, Eliquis 2.5 mg twice a day, Lipitor 80 mg once a day, Lopressor 50 mg twice a day, Plavix 75 mg once a day, Zestril 10 mg once a day. Alvin Wiley MD
[2019-01-18] MEDS ORDERED: Digoxin 125 mcg (0.125 mg) Tab PO SCH (14:00)
[2019-01-18 14:14] VITALS: PULSE 72
[2019-01-18 14:46] VITALS: PULSE 89
--- NOTE | 2019-01-18 18:12 | CP.PCM.DIS ---
Provider - Provider Date of Admission: 01/16/19 13:15 Attending physician: Clare Stanford DO Primary care physician: Robert Paz MD Consults: 01/16/19 14:36 Cardiology Consult Routine Comment: Consulting Provider: Alvin Wiley Consulting Physician: Alvin Wiley Reason for Consult: cp r/o acs, recent stent 01/16/19 14:37 Neurology Consult Routine Comment: Consulting Provider: Samm Newton Consulting Physician: Samm Newton Reason for Consult: Left upper amr weakness/around bicept r/o cva 01/16/19 22:23 Social Work Referral Routine Comment: d/c plan Physician Instructions: Reason For Exam: assess 01/16/19 22:41 Inpatient DISPATCHER SERVICE Core Measures Referral Routine Comment: chest pain Physician Instructions: Reason For Exam: assess Transition In Care/Readmission Reduction Routine Comment: chest pain Physician Instructions: Reason For Exam: assess Time Spent in preparation of Discharge (in minutes): 35 Diagnosis - Discharge Diagnosis (1) Atrial fibrillation Status: Resolved (2) Benign hypertension Status: Chronic (3) Coronary artery disease Status: Chronic Hospital Course - Lab Results Lab Results: Most Recent Lab Values WBC 6.3 10^3/uL (4.5-11.0) 01/18/19 06:00 RBC 4.90 10^6/uL (3.5-6.1) 01/18/19 06:00 Hgb 13.4 g/dL (14.0-18.0) L 01/18/19 06:00 Hct 41.8 % (42.0-52.0) L 01/18/19 06:00 MCV 85.3 fl (80.0-105.0) 01/18/19 06:00 MCH 27.3 pg (25.0-35.0) 01/18/19 06:00 MCHC 32.1 g/dl (31.0-37.0) 01/18/19 06:00 RDW 14.4 % (11.5-14.5) 01/18/19 06:00 Plt Count 224 10^3/uL (120.0-450.0) 01/18/19 06:00 MPV 10.4 fl (7.0-11.0) 01/18/19 06:00 Neut % (Auto) 67.3 % (50.0-68.0) 01/18/19 06:00 Lymph % (Auto) 18.5 % (22.0-35.0) L 01/18/19 06:00 [place] % (Auto) 11.3 % (1.0-6.0) H 01/18/19 06:00 Eos % (Auto) 2.7 % (1.5-5.0) 01/18/19 06:00 Baso % (Auto) 0.2 % (0.0-3.0) 01/18/19 06:00 Lymph # (Auto) 1.2 (1.2-3.4) 01/18/19 06:00 [place] # (Auto) 0.7 (0.1-0.6) H 01/18/19 06:00 Eos # (Auto) 0.2 (0.0-0.7) 01/18/19 06:00 Baso # (Auto) 0.01 K/mm3 (0.0-2.0) 01/18/19 06:00 Absolute Neuts (auto) 4.23 (1.4-6.5) 01/18/19 06:00 PT 13.3 SECONDS (9.4-12.5) H 01/16/19 11:37 INR 1.18 01/16/19 11:37 APTT 34.8 Seconds (26.9-38.3) 01/16/19 11:37 D-Dimer, Quantitative 206 ng/mlDDU (0-243) 01/16/19 17:25 Sodium 141 mmol/L (132-148) 01/18/19 06:00 Potassium 4.7 mmol/L (3.6-5.0) 01/18/19 06:00 Chloride 105 mmol/L (98-107) 01/18/19 06:00 Carbon Dioxide 26 mmol/L (21-33) 01/18/19 06:00 Anion Gap 14 (10-20) 01/18/19 06:00 BUN 19 mg/dL (7-21) 01/18/19 06:00 Creatinine 1.0 mg/dl (0.8-1.5) 01/18/19 06:00 Est GFR ( Amer) > 60 01/18/19 06:00 Est GFR (Non-Af Amer) > 60 01/18/19 06:00 Random Glucose 95 mg/dL (70-110) 01/18/19 06:00 Calcium 9.3 mg/dL (8.4-10.5) 01/18/19 06:00 Phosphorus 4.3 mg/dL (2.5-4.5) 01/17/19 06:00 Magnesium 1.9 mg/dL (1.7-2.2) 01/17/19 06:00 Total Bilirubin 0.5 mg/dL (0.2-1.3) 01/18/19 06:00 AST 28 U/L (17-59) 01/18/19 06:00 ALT 21 U/L (7-56) 01/18/19 06:00 Alkaline Phosphatase 78 U/L (38-126) 01/18/19 06:00 Troponin I < 0.01 ng/mL 01/17/19 00:30 NT-Pro-B Natriuret Pep 945 pg/mL (0-450) H 01/16/19 11:37 Total Protein 7.9 g/dL (5.8-8.3) 01/18/19 06:00 Albumin 4.4 g/dL (3.0-4.8) 01/18/19 06:00 Globulin 3.5 gm/dL 01/18/19 06:00 Albumin/Globulin Ratio 1.2 (1.1-1.8) 01/18/19 06:00 Triglycerides 127 mg/dL (35-160) 01/17/19 06:00 Cholesterol 142 mg/dL (130-200) 01/17/19 06:00 LDL Cholesterol Direct 84 mg/dL (0-129) 01/17/19 06:00 HDL Cholesterol 37 mg/dL (29-60) 01/17/19 06:00 TSH 3rd Generation 0.90 mIU/mL (0.46-4.68) 01/16/19 11:00 Urine Opiates Screen Negative (NEGATIVE) 01/17/19 00:45 Urine Methadone Screen Negative (NEGATIVE) 01/17/19 00:45 Ur Barbiturates Screen Negative (NEGATIVE) 01/17/19 00:45 Ur Phencyclidine Scrn Negative (NEGATIVE) 01/17/19 00:45 Ur Amphetamines Screen Negative (NEGATIVE) 01/17/19 00:45 U Benzodiazepines Scrn Negative (NEGATIVE) 01/17/19 00:45 U Oth Cocaine Metabols Negative (NEGATIVE) 01/17/19 00:45 U Cannabinoids Screen Negative (NEGATIVE) 01/17/19 00:45 Blood Type A POSITIVE 01/16/19 11:37 Blood Type Confirm A POSITIVE 01/16/19 13:40 Antibody Screen Negative 01/16/19 11:37 BBK History Checked No verified bt 01/16/19 11:37 - Hospital Course Hospital Course: On admission: Patient is a 63 y/o with Pmhx of htn, hld, Sanchez esophagus, systolic chf with LEVF of 35-40% ( 12/09), CAD s/p stent ( 12/03/18), Afib on eliquis presenting with left arm weakness. Patient states he was lying on the left side of his body around 9 pm yesterday when he felt the numbness. The numbness is mostly located around the bicep region. The numbness resolved around 1 pm today. No prior history of numbness. Admits to prior history of left sided facial droop ( about 2 years ago). Furthermore, patient states he has been having on/off left sided chest pain for 3 months. The chest pain is throbbing located below the nipple, non radiating, resolves by itself. Patient underwent cardiac cath with unknown number of stents last month, but states the chest pain persisted. Patient saw his glass edger a week ago, told him about the chest pain, however he was told his medication might need to be adjusted at his next appointment. Admits to baseline occasional sob, no headache, dizziness, no weakness in the extremities. During hospital stay: Patient had cervical spine CT done which showed no acute fractures, bilateral foraminal stenosis at C5-6, right side of C3-C5 levels. Head CT and MRI showed encephalomalacia most likely representing old infarct. ECHO shows EF 38%, no left ventricle thrombus, moderate AR, mild MR/TR/pulmonary hypertension. Cardiology and neurology were consulted, recommended continuing current management and adding digoxin and spironolactone. Patient's numbness resolved. Patient was optimized for discharge and instructed to follow up with primary medical doctor and glass edger. Discharge Exam - Additional Findings Additional findings: - Constitutional Appears: No Acute Distress - Head Exam Head Exam: ATRAUMATIC, NORMOCEPHALIC - Eye Exam Eye Exam: EOMI, Normal appearance - ENT Exam ENT Exam: Mucous Membranes Moist - Neck Exam Neck exam: Positive for: Normal Inspection - Respiratory Exam Respiratory Exam: Clear to Auscultation Bilateral, NORMAL BREATHING PATTERN. absent: Rales, Rhonchi, Wheezes, Respiratory Distress - Cardiovascular Exam Cardiovascular Exam: Irregular Rhythm, +S1, +S2. absent: Systolic Murmur - GI/Abdominal Exam GI & Abdominal Exam: Normal Bowel Sounds, Soft. absent: Distended, Firm, Guarding, Rigid, Tenderness - Extremities Exam Extremities exam: Positive for: normal inspection. Negative for: pedal edema, tenderness - Back Exam Back exam: NORMAL INSPECTION - Neurological Exam Neurological exam: Alert, CN II-XII Intact, Oriented x3 - Psychiatric Exam Psychiatric exam: Normal Affect, Normal Mood - Skin Skin Exam: Dry, Intact, Normal Color, Warm Discharge Plan - Discharge Medications Prescriptions: Digoxin 0.125 mg PO 1400 #30 tab Spironolactone [Aldactone] 25 mg PO DAILY #30 tab - Follow Up Plan Condition: GOOD Disposition: HOME/ ROUTINE Instructions: Atrial Fibrillation (DC), Transient Ischemic Attack (DC), Angina (DC) Additional Instructions: Please follow up with you primary medical doctor Dr. Paz within 3-5 days. Also follow up with your glass edger within 1 week. Please continue all of your home medications. You have also been prescribed digoxin and spironolactone. These medications have been sent to your pharmacy. Take them as prescribed. Return to ED if symptoms return. Referrals: Robert Paz [Primary Care Provider] - Kwabena Harry MD [Medical Doctor] - Samm Newton MD [Staff Provider] -
== END 2019-01-18 16:33 | disposition home or self-care (01) ==
LOC: ED 11:14 → ERH 13:15 → 3RNO 17:42
PROVIDERS: ADMIT Hospitalist; ATTEND Hospitalist
DX: R07.89 Other chest pain (principal); I48.2 Chronic atrial fibrillation; I13.0 Hypertensive heart and chronic kidney disease with heart failure and stage 1 through stage 4 chronic kidney disease, or unspecified chronic kidney disease; I25.10 Atherosclerotic heart disease of native coronary artery without angina pectoris; I27.20 Pulmonary hypertension, unspecified; I34.0 Nonrheumatic mitral (valve) insufficiency; I50.22 Chronic systolic (congestive) heart failure; K21.9 Gastro-esophageal reflux disease without esophagitis; K22.70 Barrett's esophagus without dysplasia; M47.9 Spondylosis, unspecified; M48.02 Spinal stenosis, cervical region; N18.9 Chronic kidney disease, unspecified; Z79.01 Long term (current) use of anticoagulants; G93.89 Other specified disorders of brain; F17.210 Nicotine dependence, cigarettes, uncomplicated; E78.5 Hyperlipidemia, unspecified; E78.00 Pure hypercholesterolemia, unspecified; Z82.49 Family history of ischemic heart disease and other diseases of the circulatory system; Z86.010 Personal history of colon polyps; Z86.73 Personal history of transient ischemic attack (TIA), and cerebral infarction without residual deficits; Z87.442 Personal history of urinary calculi; Z90.49 Acquired absence of other specified parts of digestive tract; Z95.5 Presence of coronary angioplasty implant and graft
CPT/HCPCS: 36415; 70450; 70551; 71046; 72125; 80053; 80061; 80324; 80345; 80346; 80349; 80353; 80358; 80361; 83735; 83880; 83992; 84100; 84443; 84484; 85025; 85378; 85610; 85730; 86850; 86900; 93005; 93306; 99285; G0378